=== PATIENT | male | born 1965 | race Hispanic/Latino ===

== ENCOUNTER 2017-11-12 20:58 | Emergency (ER) | payer MEDICAID, OTHER ==
[2017-11-12 21:02] VITALS: BP 112/70; PULSE 61; RESP 18; O2SAT 98
--- NOTE | 2017-11-12 22:13 | CT ---
EXAM: CT Head Without Intravenous Contrast EXAM DATE/TIME: 11/12/2017 9:11 PM CLINICAL HISTORY: 52 years old, male; Injury or trauma; Injury Intox. , Head injury; Initial encounter; Concussion / head injury; Consciousness not specified; Additional info: Intox, head trauma TECHNIQUE: Axial computed tomography images of the head/brain without intravenous contrast. All CT scans at this facility use one or more dose reduction techniques, viz.: automated exposure control; ma/kV adjustment per patient size (including targeted exams where dose is matched to indication; i.e. head); or iterative reconstruction technique. Coronal and sagittal reformatted images were created and reviewed. COMPARISON: No relevant prior studies available. FINDINGS: Atrophy. There is decreased attenuation in the periventricular white matter consistent with chronic small vessel ischemic disease. There are multiple small areas of low attenuation in the basal ganglia bilaterally and in the thalamus bilaterally consistent with old lacunar infarcts. No intracranial hemorrhage. No extra axial collections. No intracranial edema. There is partial opacification of the frontal and maxillary sinuses and of the left ethmoid sinus. It could be chronic or alternatively represent acute sinusitis. Clinical correlation is recommended. No depressed fractures. IMPRESSION: No acute intracranial injury. Sinus disease. Old lacunar infarcts.
--- NOTE | 2017-11-12 22:37 | ED PDOC ---
HPI: Psych/Substance Abuse Time Seen by Provider: 11/12/17 21:05 Chief Complaint (Nursing): Alcohol Ingestion Chief Complaint (Provider): Alcohol intoxication ED Caveat: Intoxicated History Per: Patient History/Exam Limitations: no limitations Onset/Duration Of Symptoms: Mins (30 mins) Additional Complaint(s): Patient is a 52 y/o male with past history of alcohol abuse, who drinks everyday and admits to taking "a couple of shots" and "couple of beers" today. Patient reports that 30 minutes prior to arrival he fell annd hit his head but did not pass out. He denies any drug use or other past medical history. Past Medical History Reviewed: Historical Data, Nursing Documentation, Vital Signs Vital Signs: Last Vital Signs Temp Pulse 61 11/12/17 20:59 Resp 18 11/12/17 20:59 BP 112/70 11/12/17 20:59 Pulse Ox 98 11/12/17 20:59 - Medical History PMH: Pneumonia - Surgical History Surgical History: No Surg Hx - Family History Family History: States: Unknown Family Hx - Social History Current smoker - smoking cessation education provided: Yes (< 10 cigarettes daily) Alcohol: Other (everyday) Drugs: Denies - Immunization History Hx Tetanus Toxoid Vaccination: No Hx Influenza Vaccination: No Hx Pneumococcal Vaccination: No - Home Medications Home Medications: Ambulatory Orders Medication Instructions Recorded No Known Home Med 04/25/16 - Allergies Allergies/Adverse Reactions: Allergies Allergy/AdvReac Type Severity Reaction Status Date / Time No Known Allergies Allergy Verified 11/12/17 21:01 Review of Systems ROS Statement: Except As Marked, All Systems Reviewed And Found Negative Physical Exam - Reviewed Nursing Documentation Reviewed: Yes Vital Signs Reviewed: Yes - Physical Exam Appears: Positive for: No Acute Distress (Intoxicated appearing, disheveled) Head Exam: Positive for: ATRAUMATIC, NORMOCEPHALIC Skin: Positive for: Normal Color, Warm, Dry Eye Exam: Positive for: Normal appearance, EOMI, PERRL Neck: Positive for: Normal, Painless ROM, Supple Cardiovascular/Chest: Positive for: Regular Rate, Rhythm. Negative for: Murmur Respiratory: Positive for: Normal Breath Sounds. Negative for: Respiratory Distress Gastrointestinal/Abdominal: Positive for: Normal Exam, Soft. Negative for: Tenderness Back: Positive for: Normal Inspection. Negative for: L CVA Tenderness, R CVA Tenderness, Vertebral Tenderness Extremity: Positive for: Normal ROM. Negative for: Pedal Edema, Deformity Neurologic/Psych: Positive for: Alert, Oriented (x3), Other (slurred speech) - ECG O2 Sat by Pulse Oximetry: 98 (RA) Pulse Ox Interpretation: Normal Medical Decision Making Medical Decision Makin:11 Initial Impression: Alcohol Intoxication Initial Plan: --Head CT W/O Contrast --Alcohol Serum --Glucose, Blood, POC 22:[address] W/O Contrast Results FINDINGS: Atrophy. There is decreased attenuation in the periventricular white matter consistent with chronic small vessel ischemic disease. There are multiple small areas of low attenuation in the basal ganglia bilaterally and in the thalamus bilaterally consistent with old lacunar infarcts. No intracranial hemorrhage. No extra axial collections. No intracranial edema. There is partial opacification of the frontal and maxillary sinuses and of the left ethmoid sinus. It could be chronic or alternatively represent acute sinusitis. Clinical correlation is recommended. No depressed fractures. IMPRESSION: No acute intracranial injury. Sinus disease. Old lacunar infarcts. 630 Pt. awake and alert, steady gait, stable for d/c. Scribe Attestation: Documented by Anjelica Correa, acting as a scribe for Jaspreet Guthrie MD Provider Scribe Attestation: All medical record entries made by the Scribe were at my direction and personally dictated by me. I have reviewed the chart and agree that the record accurately reflects my personal performance of the history, physical exam, medical decision making, and the department course for this patient. I have also personally directed, reviewed, and agree with the discharge instructions and disposition. Disposition - Clinical Impression Clinical Impression: Alcohol abuse - Patient ED Disposition Is Patient to be Admitted: No - Disposition Referrals: Alcoholics Anonymous [Outside] Disposition: Routine/Home Disposition Time: 06:40 Condition: IMPROVED Instructions: Alcohol Intoxication (ED) Forms: [employer] (Chinese)
[2017-11-13 00:12] VITALS: TEMP 98.7
== END 2017-11-13 07:19 | disposition home or self-care (01) ==
LOC: H.ER 20:58
DX: F10.129 Alcohol abuse with intoxication, unspecified (principal); S09.90XA Unspecified injury of head, initial encounter; W19.XXXA Unspecified fall, initial encounter; Y92.89 Other specified places as the place of occurrence of the external cause; F17.210 Nicotine dependence, cigarettes, uncomplicated

== ENCOUNTER 2017-12-06 21:10 | Emergency (ER) | payer OTHER ==
--- NOTE | 2017-12-06 21:22 | ED PDOC ---
HPI: Psych/Substance Abuse Time Seen by Provider: 12/06/17 21:17 Chief Complaint (Nursing): Alcohol Ingestion Chief Complaint (Provider): ETOH History Per: Patient Additional Complaint(s): Patient is a 52 y/o male with past history of alcohol abuse, who drinks everyday and admits to taking "a couple of shots" and "couple of beers" today. Patient reports that 30 minutes prior to arrival he fell annd hit his head but did not pass out. He denies any drug use or other past medical history. Past Medical History Reviewed: Nursing Documentation, Vital Signs Vital Signs: Last Vital Signs Temp 97.5 F L 12/06/17 21:13 Pulse 64 12/06/17 21:13 Resp 17 12/06/17 21:13 BP 117/70 12/06/17 21:13 Pulse Ox 99 12/06/17 21:13 - Medical History PMH: Pneumonia - Family History Family History: States: Unknown Family Hx - Social History Alcohol: > 2 Drinks/Day - Immunization History Hx Tetanus Toxoid Vaccination: No Hx Influenza Vaccination: No Hx Pneumococcal Vaccination: No - Home Medications Home Medications: Ambulatory Orders Medication Instructions Recorded No Known Home Med 04/25/16 - Allergies Allergies/Adverse Reactions: Allergies Allergy/AdvReac Type Severity Reaction Status Date / Time No Known Allergies Allergy Verified 11/12/17 21:01 Review of Systems ROS Statement: Except As Marked, All Systems Reviewed And Found Negative Neurological: Positive for: Headache Physical Exam - Reviewed Nursing Documentation Reviewed: Yes Vital Signs Reviewed: Yes - Physical Exam Appears: Positive for: Well, Non-toxic, No Acute Distress Head Exam: Positive for: ATRAUMATIC, NORMAL INSPECTION, NORMOCEPHALIC Skin: Positive for: Normal Color, Warm, DRY Eye Exam: Positive for: EOMI, Normal appearance, PERRL ENT: Positive for: Normal ENT Inspection Neck: Positive for: Normal, Painless ROM Cardiovascular/Chest: Positive for: Regular Rate, Rhythm Respiratory: Positive for: CNT, Normal Breath Sounds Gastrointestinal/Abdominal: Positive for: Normal Exam, Bowel Sounds, Soft Back: Positive for: Normal Inspection Extremity: Positive for: Normal ROM, Other (superficial abrasion to b/l hands) Neurologic/Psych: Positive for: Alert, Oriented - Laboratory Results Result Diagrams: 12/06/17 21:53 12/06/17 21:53 - ECG O2 Sat by Pulse Oximetry: 99 Medical Decision Making Medical Decision Making: ETOH resulted [address] pending Case endorsed to RAYMOND Parnell at 0000 pending diagnostic review and re-eval Disposition - Clinical Impression Clinical Impression: Alcohol use, Head injury - Patient ED Disposition Is Patient to be Admitted: Transfer of Care - Disposition Disposition: Transfer of Care Disposition Time: 23:44 Condition: STABLE Forms: [facility] (Hebrew) - POA Present On Arrival: None
[2017-12-06 21:59] LABS: BASO # 0.1 K/uL (0.0-0.2); BASO % 0.8 % (0.0-2.0); EOS % 0.5 % (0.0-4.0); HEMOGLOBIN 11.4 g/dL (12.0-18.0); LYMPH # 4.1 K/uL (1.0-4.3); LYMPH % 51.2 % (20.0-40.0); MEAN CELL VOLUME 89.9 fl (80.0-94.0); MEAN CORPUSCULAR HEMOGLOBIN 29.5 pg (27.0-31.0); MEAN CORPUSCULAR HGB CONC 32.8 g/dL (33.0-37.0); MEAN PLATELET VOLUME 7.2 fl (7.2-11.7); MONO # 0.7 K/uL (0.0-0.8); MONO % 9.2 % (0.0-10.0); NEUT # 3.1 K/uL (1.8-7.0); NEUT % 38.3 % (50.0-75.0); NRBC % 0.1 % (0.0-0.0); RBC 3.86 Mil/uL (4.40-5.90); RED CELL DISTRIBUTION WIDTH 14.7 % (11.5-14.5); WHITE BLOOD COUNT 8.1 K/uL (4.8-10.8)
[2017-12-06 22:11] LABS: ALB/GLOB RATIO 1.1 (1.0-2.1); ALBUMIN 4.1 g/dL (3.5-5.0); ALT/SGPT 26 U/L (21-72); AST/SGOT 34 U/L (17-59); BLOOD UREA NITROGEN 7 mg/dl (9-20); CALCIUM 8.8 mg/dL (8.4-10.2); GFR AFRICAN-AMERICAN > 60; GFR NON-AFRICAN AMERICAN > 60
--- NOTE | 2017-12-06 23:53 | CT ---
EXAM: CT Head Without Intravenous Contrast CLINICAL HISTORY: 52 years old, male; Injury or trauma; Fall; Initial encounter; Blunt trauma (contusions or hematomas); Without loss of consciousness; Additional info: Fall/etoh TECHNIQUE: Axial computed tomography images of the head/brain without intravenous contrast. All CT scans at this facility use one or more dose reduction techniques, viz.: automated exposure control; ma/kV adjustment per patient size (including targeted exams where dose is matched to indication; i.e. head); or iterative reconstruction technique. Coronal and sagittal reformatted images were created and reviewed. COMPARISON: CT - HEAD W/O CONTRAST 2017-11-12 21:29 FINDINGS: Brain: Prominence of the sulci and ventricular system consistent with atrophy. Hypodensity in the white matter consistent with chronic small vessel disease. No intracranial hemorrhage. Ventricles: No hydrocephalus. Bones/joints: Bony calvarium is intact. No acute fracture. Soft tissues: Unremarkable. Sinuses: Right maxillary sinus mucosal disease. Mastoid air cells: Mastoids are clear. IMPRESSION: No acute intracranial abnormality.
--- NOTE | 2017-12-07 05:21 | ED PDOC ---
- Laboratory Results Result Diagrams: 12/06/17 21:53 12/06/17 21:53 - ECG O2 Sat by Pulse Oximetry: 99 - Progress ED Course And Treament: 0000 Signed out to me pending CT results 29 On re-evaluation, pt. in no distress. Gait steady unassisted. CT head w/o contrast: negative. Disposition - Clinical Impression Clinical Impression: Alcohol use, Head injury - POA Present On Arrival: None - Disposition Disposition: Routine/Home Disposition Time: 00:30 Condition: IMPROVED Instructions: Alcohol Intoxication (ED), Head Injury (ED) Forms: [employer] (Swiss)
[2017-12-07 07:38] VITALS: BP 143/79; PULSE 63; RESP 18; TEMP 98.3; O2SAT 98
== END 2017-12-07 06:00 | disposition home or self-care (01) ==
LOC: H.ER 21:10
DX: S09.90XA Unspecified injury of head, initial encounter (principal); W19.XXXA Unspecified fall, initial encounter; Y92.89 Other specified places as the place of occurrence of the external cause; F10.129 Alcohol abuse with intoxication, unspecified

== ENCOUNTER 2018-12-02 22:37 | Emergency (ER) | payer MEDICAID, OTHER ==
[2018-12-02 22:37] VITALS: BMI 21.4
[2018-12-02] MEDS ORDERED: Permethrin 5% CREAM TOP ONE (23:17)
--- NOTE | 2018-12-02 23:44 | ED PDOC ---
HPI: Chest Pain Time Seen by Provider: 12/02/18 22:56 Chief Complaint (Nursing): Back Pain Chief Complaint (Provider): Mechanical Chest Pain History Per: Patient History/Exam Limitations: no limitations Onset/Duration Of Symptoms: Days (four) Current Symptoms Are (Timing): Still Present Severity: Mild Quality: Sharp Associated Symptoms: denies: Nausea, Dyspnea, Diaphoresis, Syncope Exacerbating Factors: Turning, Movement, Deep Breathing Past Medical History Reviewed: Historical Data, Nursing Documentation, Vital Signs Vital Signs: Last Vital Signs Temp 98.1 F 12/02/18 22:43 Pulse 101 H 12/02/18 22:43 Resp 16 12/02/18 22:43 BP 143/83 12/02/18 22:43 Pulse Ox 97 12/02/18 22:43 - Medical History PMH: Fractures, Pneumonia - Family History Family History: States: Unknown Family Hx - Immunization History Hx Tetanus Toxoid Vaccination: No Hx Influenza Vaccination: No Hx Pneumococcal Vaccination: No - Home Medications Home Medications: Ambulatory Orders Medication Instructions Recorded Ketoconazole 2% Cr [Nizoral] 1 appl TP Q12H #1 tube 09/03/18 Permethrin 1% Kit [Nix Complete 59 ml TP ONCE #1 bottle MDD USE IN 12/02/18 Lice Elimination Kit 1%] ONE WEEK BUT NOT PRIOR - Allergies Allergies/Adverse Reactions: Allergies Allergy/AdvReac Type Severity Reaction Status Date / Time No Known Allergies Allergy Verified 09/04/18 05:29 TODD Risk Score for UA/NSTEMI - TODD Risk Score Age > 64: NO 3 or more CAD Risk Factors: NO Known CAD (Stenosis greater than 50%): NO Aspirin use in past 7 days: NO Severe Angina: NO EKG ST changes greater than 0.5mm: NO Positive Cardiac Marker: NO TODD Score: 0 Risk %: 5% Review of Systems ROS Statement: Except As Marked, All Systems Reviewed And Found Negative Musculoskeletal: Positive for: Back Pain, Other (rib pain) Skin: Positive for: Rash (lice noted ) Physical Exam - Reviewed Nursing Documentation Reviewed: Yes Vital Signs Reviewed: Yes - Physical Exam Appears: Positive for: Well, Non-toxic, No Acute Distress. Negative for: Uncomfortable Head Exam: Positive for: ATRAUMATIC, NORMAL INSPECTION Skin: Positive for: Rash (lice noted on physical exam) Neck: Positive for: Normal, Painless ROM, Supple. Negative for: Decreased ROM Cardiovascular/Chest: Positive for: Tachycardia. Negative for: Gallop, Murmur, Friction Rub, Irregularly Irregular Respiratory: Positive for: Normal Breath Sounds Pulses-Carotid (L): 2+ Pulses-Carotid (R): 2+ Pulses-Radial (L): 2+ Pulses-Radial (R): 2+ Back: Positive for: Normal Inspection. Negative for: L CVA Tenderness, R CVA Tenderness Extremity: Positive for: Other (right sided rib pain) - ECG O2 Sat by Pulse Oximetry: 97 Medical Decision Making Medical Decision Making: Pt presents with mechanical rib pain on the right side My review of the xray indicates no fractures or acute pathology in rib or lungs Pt has body lice and was decontaminated and given administration of permetherin 5% Disposition - Clinical Impression Clinical Impression: Costochondral chest pain, Body lice - Patient ED Disposition Is Patient to be Admitted: No Counseled Patient/Family Regarding: Diagnosis, Need For Followup, Rx Given - Disposition Disposition: Routine/Home Disposition Time: 23:49 Condition: STABLE Prescriptions: Permethrin 1% Kit [Nix Complete Lice Elimination Kit 1%] 59 ml TP ONCE #1 bottle MDD USE IN ONE WEEK BUT NOT PRIOR Instructions: Lice, Chest Pain That Is Not Caused by the Heart (DC)
[2018-12-03 01:11] VITALS: BP 138/81; PULSE 82; RESP 17; TEMP 98; O2SAT 98
--- NOTE | 2018-12-03 07:57 | CARD ---
APPROVED REPORT Date of service: 12/02/2018 EKG Measurement Heart [id number] <Conclusion> Sinus tachycardia Otherwise normal ECG
--- NOTE | 2018-12-03 09:36 | RAD ---
Date of service: 12/02/2018 PROCEDURE: Radiographs of the Chest and Right Ribs. HISTORY: mechanical cp COMPARISON: None available. TECHNIQUE: Frontal radiograph of the chest and multiple oblique radiographs of the right ribs were obtained. FINDINGS: RIGHT RIBS: No displaced rib fracture identified. Old healed right-sided rib fractures noted. LUNGS: Focal consolidation noted right lower lung field. PLEURA: No pneumothorax or pleural effusion identified. CARDIOVASCULAR: Heart size within normal limits. No aortic atherosclerotic calcification present OTHER FINDINGS: None. IMPRESSION: No displaced right rib fracture identified. Focal airspace opacity right lower lung field, likely infectious/inflammatory process. Underlying mass cannot be excluded. Follow up to resolution is advised.
== END 2018-12-03 00:56 | disposition home or self-care (01) ==
LOC: H.ER 22:37
DX: M94.0 Chondrocostal junction syndrome [Tietze] (principal); B85.1 Pediculosis due to Pediculus humanus corporis

== ENCOUNTER 2018-12-08 03:14 | Emergency (ER) | payer OTHER ==
[2018-12-08 03:30] VITALS: BMI 21.2
[2018-12-08 03:33] VITALS: TEMP 99.5
--- NOTE | 2018-12-08 04:23 | ED PDOC ---
HPI: General Adult Time Seen by Provider: 12/08/18 03:54 Chief Complaint (Nursing): Lower Extremity Problem/Injury Chief Complaint (Provider): Homeless History Per: Patient History/Exam Limitations: no limitations (Pt was brought into the ED by [employer]; pt indicates he was having coffee when the police came to a coffee shop and brought him in. Pt denies any illness or need of medical treatment other than to escape the cold temperatures. Specifically, the pt denies SOB, BRONSON, CP, fever, nausea, vomiing, diarhhea or any pain or illness) Past Medical History Reviewed: Historical Data, Nursing Documentation, Vital Signs Vital Signs: Last Vital Signs Temp 99.5 F 12/08/18 03:30 Pulse 115 H 12/08/18 03:30 Resp 22 12/08/18 03:30 BP 151/85 H 12/08/18 03:30 Pulse Ox 95 12/08/18 03:30 - Medical History PMH: Fractures, Pneumonia - Family History Family History: States: Unknown Family Hx - Immunization History Hx Tetanus Toxoid Vaccination: No Hx Influenza Vaccination: No Hx Pneumococcal Vaccination: No - Home Medications Home Medications: Ambulatory Orders Medication Instructions Recorded Ketoconazole 2% Cr [Nizoral] 1 appl TP Q12H #1 tube 09/03/18 Permethrin 5% [Permethrin 5% Cream] 60 gm EXT ONCE #1 tube 12/03/18 - Allergies Allergies/Adverse Reactions: Allergies Allergy/AdvReac Type Severity Reaction Status Date / Time No Known Allergies Allergy Verified 12/08/18 03:29 Review of Systems ROS Statement: Except As Marked, All Systems Reviewed And Found Negative Physical Exam - Reviewed Vital Signs Reviewed: Yes - Physical Exam Appears: Positive for: Well, Non-toxic, No Acute Distress. Negative for: Uncomfortable Skin: Positive for: Normal Color, Warm, Dry. Negative for: Diaphoresis, Pallor, Rash Eye Exam: Positive for: Normal appearance ENT: Positive for: Normal ENT Inspection Neck: Positive for: Normal, Painless ROM, Supple. Negative for: Decreased ROM Cardiovascular/Chest: Positive for: Regular Rate, Rhythm Respiratory: Positive for: Normal Breath Sounds. Negative for: Decreased Breath Sounds, Accessory Muscle Use, Crackles, Rales, Stridor, Wheezing, Respiratory Distress Pulses-Carotid (L): 2+ Pulses-Carotid (R): 2+ Pulses-Radial (L): 2+ Pulses-Radial (R): 2+ - ECG O2 Sat by Pulse Oximetry: 95 Medical Decision Making Medical Decision Making: Pt refuses medical treatment indicating that no medical treatment is necessary Pt is stable for discharge Pt will be discharged Disposition - Clinical Impression Clinical Impression: Physical exam - Patient ED Disposition Is Patient to be Admitted: No Doctor Will See Patient In The: Office Counseled Patient/Family Regarding: Diagnosis - Disposition Disposition: Routine/Home Disposition Time: 04:25 Condition: STABLE Instructions: General (DC) Forms: [employer] (Slovak)
[2018-12-08 06:40] VITALS: BP 145/78; PULSE 87; RESP 17; O2SAT 99
== END 2018-12-08 06:40 | disposition home or self-care (01) ==
LOC: H.ER 03:14
DX: Z59.0 Homelessness (principal); Z71.1 Person with feared health complaint in whom no diagnosis is made